=== PATIENT | female | born 1970 | race Caucasian/White ===

== ENCOUNTER → 2018-11-24 | Outpatient (CLI) | payer OTHER ==
[2015-05-29 10:31] VITALS: BMI 24.0
[~2018-11-24] MED LIST: ACE3 PO; ACE325 PO; AMO875 PO; CALC-515 PO; GUA5L PO; HYDR-385 PO; IBU800 PO; IBUP-56 PO; IBUP600T22 PO; IBUP800T37 PO; KET10 PO; NITR-105 PO; OXYC-373 PO; PER PO; PSE30 PO; [UNRECOGNIZED DRUG - REMARK]
--- NOTE | 2018-11-24 11:07 | RADIOLOGY IMAGING REPORT ---
[place] [facility] [place] NAME: Bernice Caballero : 1970 MR: [id number] V: [id number] EXAM DATE: ORDERING PHYSICIAN: NICK DEL RIO TECHNOLOGIST: Location: [facility] [place] Patient: Bernice Caballero : 1970 Visit/Account:[id number] Date of Sevice: 11/24/2018 PELVIC HISTORY: Evaluate for ovarian enlargement ADDITIONAL HISTORY: Remote partial hysterectomy with left oophorectomy TECHNIQUE: Transvaginalultrasound pelvis. Transabdominal ultrasound also performed COMPARISON: None. FINDINGS: Uterus size surgically absent. Ovaries: Right - 4.3 x 2.5 x 1.8 centimeters. There is what 0.5 cm follicle in the right ovary. Left ovary surgically absent Blood flow is documented in the right ovary by duplex Doppler ultrasound. Adnexa: Grossly unremarkable. Free pelvic fluid: None. Urinary bladder: Unremarkable. IMPRESSION: Remote hysterectomy/oophorectomy. Normal right ovary Report Dictated By: Addi Corado MD at 11/24/2018 10:57 AM Report E-Signed By: Addi Corado MD at 11/24/2018 11:02 AM WSN:[email or web address]
== END ==
LOC: US 00:21
PROVIDERS: ATTEND Family Medicine
DX: Z90.710 Acquired absence of both cervix and uterus (principal)
CPT/HCPCS: 76856

== ENCOUNTER → 2018-12-06 | Outpatient (CLI) | payer OTHER ==
[2015-05-29 10:31] VITALS: BMI 24.0
--- NOTE | 2018-12-07 08:31 | RADIOLOGY IMAGING REPORT ---
FACILITY: [facility] PATIENT NAME: DAMON POLO : [id number] MR: [id number] V: [id number] EXAM DATE: ORDERING PHYSICIAN: NICK DEL RIO TECHNOLOGIST: Lola Riley PROCEDURE:BILATERAL DIGITAL SCREENING MAMMOGRAM WITH CAD ASSISTED INTERPRETATION & 3D TOMOSYNTHESIS COMPARISON:Prior mammograms dated 02/27/14, 02/08/12 INDICATIONS:SCREENING FINDINGS: The breasts are heterogeneously dense which can obscure small masses. The parenchymal pattern has remained stable allowing for difference in mammographic technique & patient positioning. DIAGNOSTIC CATEGORY 1--NEGATIVE. RECOMMENDATIONS: ROUTINE MAMMOGRAM AND CLINICAL EVALUATION. IMPRESSION: BIRADS 1: Negative. No significant abnormality is seen. Dictated by: Elena Martínez M.D. on 12/06/2018 at 14:33 Transcribed by: RONY on 12/06/2018 at 14:49 Approved by: Elena Martínez M.D. on 12/07/2018 at 8:30 [facility]
== END ==
LOC: MAMO 00:48
PROVIDERS: ATTEND Family Medicine
DX: Z12.31 Encounter for screening mammogram for malignant neoplasm of breast (principal)
CPT/HCPCS: 77063; 77067